=== PATIENT | female | born 1955 | race Caucasian/White ===

== ENCOUNTER → 2020-03-27 12:36 | Outpatient (BNVA) | payer MEDICARE, OTHER, BC, SELFPAY | PROVIDERS: Family Provider Internal Medicine; Referring Provider Dermatology; Visit Provider Dermatology | DX: L57.0 Actinic keratosis (principal); Z12.83 Encounter for screening for malignant neoplasm of skin; D22.70 Melanocytic nevi of unspecified lower limb, including hip; D22.5 Melanocytic nevi of trunk; L21.9 Seborrheic dermatitis, unspecified | CPT/HCPCS: 17000; 17003; 99203; 99204 ==

== ENCOUNTER 2020-09-30 09:24 | Outpatient (CLI) | payer MEDICARE, OTHER, SELFPAY ==
--- NOTE | 2020-09-30 09:30 | MM_ITS ---
WS: [id number] BILATERAL SCREENING DIGITAL MAMMOGRAM WITH CAD HISTORY: SCREENING COMPARISON: 01/31/2019 and 12/28/2017 Bilateral CC and MLO views submitted. Computer aided detection analyzed. Breast composition: The breasts are almost entirely fatty. No suspicious masses, microcalcifications or architectural distortion. Bilateral scattered calcifications. MM/[place] [id number] IMPRESSION: BI-RADS: 2-Benign FOLLOW UP: 1 Year Follow-up
== END 2020-09-30 09:25 | disposition home or self-care (01) ==
LOC: RADSHAW 09:28
PROVIDERS: PCP Internal Medicine; Visit Provider Internal Medicine
DX: Z12.31 Encounter for screening mammogram for malignant neoplasm of breast (principal)
CPT/HCPCS: 77067; 88175

== ENCOUNTER → 2020-10-10 08:41 | Outpatient (BNVA) | payer MEDICARE, OTHER, SELFPAY | PROVIDERS: PCP Internal Medicine; Visit Provider Obstetrics & Gynecology | DX: D25.9 Leiomyoma of uterus, unspecified (principal); N83.202 Unspecified ovarian cyst, left side | CPT/HCPCS: 76830; 81500 ==

== ENCOUNTER 2020-12-24 10:34 | Outpatient (CLI) | payer MEDICARE, OTHER, SELFPAY ==
--- NOTE | 2020-12-24 10:47 | CT_ITS ---
WS: [id number] CT CHEST ANGIOGRAPHY WITH REFORMATS HISTORY: HYPOXIA TECHNIQUE: Contiguous axial images are obtained through the chest during arterial injection of intrav enous contrast. Images are reconstructed to evaluate the pulmonary arteries. MIP imaging also reviewe d. All CT scans at [facility] use at least one of these dose optimization techniques: aut omated exposure control; mA and/or kV adjustment per patient size (includes targeted exams where dose is matched to clinical indication); or iterative reconstruction. CONTRAST: Omnipaque 350; 95 mL IV. DLP: 712.92 mGycm COMPARISON: None available. Very good opacification of the pulmonary arteries. Mildly branching of a subsegmental RIGHT lower lob e nonocclusive pulmonary embolism. No additional emboli are identified. Normal size pulmonary artery. No filling defect in the LEFT atrial appendage. No RIGHT heart strain. There is a moderate size layering pleural effusion. There is mild central bronchial wall thickening. No discrete mass is identified. There is partial atelectasis of the RIGHT middle and RIGHT lower lobe s. Indeterminate and mildly prominent RIGHT paratracheal and hilar lymph nodes with the largest measurin g up to 12 mm. RIGHT apical spiculated mass with pleural tagging measures 18 x 14 x 10 mm. Visualized liver is negative. No adrenal mass. There is very slight nodularity of the LEFT adrenal gl and. Prior cholecystectomy. Moderate increase in thoracic kyphosis. No osteoblastic or osteolytic bone lesions. CT/CT angio chest PE protcl [id number] IMPRESSION: 1. Subsegmental RIGHT lower lobe nonocclusive pulmonary emboli. 2. Moderate size layering RIGHT pleural effusion. 3. Spiculated mass at the RIGHT apex measures 18 x 14 x 10 mm. Neoplasm until proven otherwise. 4. Indeterminate RIGHT paratracheal and hilar lymph nodes with the largest dante suring 12 mm. 5. Partial atelectasis RIGHT middle and RIGHT lower lobes. Notified Terry Naranjo DO at 12/24/2020 11:48 AM.
== END 2020-12-24 10:35 | disposition home or self-care (01) ==
PROVIDERS: PCP Internal Medicine; Visit Provider Internal Medicine
DX: R09.02 Hypoxemia (principal); I26.99 Other pulmonary embolism without acute cor pulmonale; J90 Pleural effusion, not elsewhere classified; J98.11 Atelectasis
CPT/HCPCS: 71275; Q9967

== ENCOUNTER 2020-12-24 10:55 | Outpatient (CLI) | payer MEDICARE, OTHER, SELFPAY ==
--- NOTE | 2020-12-24 | XR_ITS ---
WS: [id number] CHEST 2 VIEWS HISTORY: CHEST PAIN COMPARISON: 05/27/2018 Lungs: Lung volumes are decreased due to marked kyphosis. Mild elevation of the RIGHT hemidiaphragm w ith a small RIGHT pleural effusion. New effusion since 05/27/2018. No pulmonary mass or nodule. Cardiac size: Normal. Mediastinum/Aorta: Mild atherosclerosis aorta. Bones: Marked increased in thoracic kyphosis. No osteoblastic or osteolytic bone disease. Prior cholecystectomy. XR/XR chest 2V* [id number] IMPRESSION: 1. Small RIGHT pleural effusion of uncertain etiology. Recommend additional ev aluation with a chest CT and IV contrast. 2. Low lung volumes due to marked kyphosis.
== END 2020-12-24 10:56 | disposition home or self-care (01) ==
LOC: RADOUTREAD 11:03
PROVIDERS: PCP Internal Medicine; Visit Provider Internal Medicine
DX: Z53.9 Procedure and treatment not carried out, unspecified reason (principal)

== ENCOUNTER 2020-12-24 13:39 | Emergency (ER) | payer MEDICARE, OTHER, SELFPAY ==
[2020-12-24 14:13] VITALS: BP 153/91; PULSE 88; RESP 18; TEMP 37.3; O2SAT 93; BMI 31.1
--- NOTE | 2020-12-24 15:14 | ECG_ITS ---
[facility] Test Date: 2020-12-24 Pat Name: Cassandra Brown Department: Room: Gender: Female Site Safety Representative: : 1955 Requested By: Reyes Lara Order Number: [id number] Magan MD: Eloy Vazquez M.D. Measurements Intervals [place] Rate: 86 P: 44 DE: 149 QRS: 32 QRSD: 80 T: 26 QT: 350 QTc: 419 Interpretive Statements SINUS RHYTHM Compared to ECG 05/27/2018 09:03:06 No significant changes Electronically Signed On 12-25-2020 18:45:15 CDT by Eloy Vazquez M.D. [id number]
--- NOTE | 2020-12-24 15:34 | US_ITS ---
WS: [id number] ULTRASOUND-GUIDED THORACENTESIS CLINICAL INFORMATION: right pulm effusion and lung ca. diagnostic for CA cells. COMPARISON: CTA chest December 24, 2020 PROCEDURE: Informed consent: The risks, benefits, and alternatives of the procedure were discussed with the miguelito ent. Verbal and written consent was obtained. Timeout: A timeout was performed to confirm the correct patient, procedure, and site. Site: Right Preparation: A suitable skin site was identified. The patient was prepped and draped in usual sterile fashion. Lidocaine 1% was used for local anesthesia. Catheter: 4 [place] One-Step catheter. Fluid Volume: 300 ml Color: Dark yellow Fluid sent to the laboratory for requested diagnostic tests. Remainder discarded safely. Complications: No pneumothorax on the post thoracentesis portable chest / thoracentesis [id number] IMPRESSION: 1. Uncomplicated ultrasound-guided right thoracentesis. Removal of 300 cc flui d. 2. Fluid sent for requested diagnostic tests. 3. No immediate complications.
[2020-12-24] MEDS: LORazepam 2 mg/mL INJ 1 mL 0.5 MG IVP (15:39)
[2020-12-24 15:47] LABS: Basophils % 0.3 %; Eosinophils # 0.2 10^3/uL (0.0-0.8); Hematocrit 40.1 % (37.0-47.0); Hemoglobin 12.7 g/dL (11.5-15.3); Lymphocytes # 2.3 10^3/uL (0.8-4.8); Lymphocytes % 20.8 %; Mean Corpuscular HGB Conc 31.7 g/dL (30.0-36.0); Mean Corpuscular Hemoglobin 29.3 pg (28.0-34.0); Mean Corpuscular Volume 92.6 fL (81-99); Mean Platelet Volume 9.4 fL (7.4-10.4); Monocytes # 0.6 10^3/uL (0.2-0.9); Monocytes % 5.8 %; Neutrophils # 7.66 10^3/uL (1.8-7.7); Neutrophils % 70.6 %; Nucleated Red Blood Cells % 0 %; Platelet Count 437 10^3/cmm (130-400); Red Blood Count 4.33 10^6/uL (4.1-5.3); Red Cell Distribution Width 12.2 % (12.1-15.1); White Blood Count 10.9 10^3/uL (4.0-10.0)
[2020-12-24 16:07] LABS: Add Urine Microscopic? YES; Bilirubin Urine Neg (Negative); Blood Urine Neg (Negative); Glucose Urine UA Norm (Normal); Ketones Urine Negative (Negative); Leukocyte Esterase Urine Negative (Negative); Nitrate Urine Negative (Negative); Protein Urine Trace (Negative); Urine Appearance Clear (CLEAR); Urine Color Yellow (Yellow); Urobilinogen Urine 1 mg/dL (Negative); pH Urine 5 (5-7)
[2020-12-24 16:21] LABS: Alanine Aminotransferase 20 U/L (0-33); Alkaline Phosphatase 208 IU/L (35-105); Anion Gap 18.9 (5-19); Aspartate Amino Transferase 19 U/L (0-32); Blood Urea Nitrogen 16 mg/dL (8-23); Carbon Dioxide 24 mmol/L (22-29); Chloride 96 mmol/L (98-107); Creatinine Clr Calc Pharmacy 80.8673; Globulin 3.6 g/dL (1.3-4.6); Glomerular Filtration Rate 100.3 mL/min (90-130); Glucose 95 mg/dL (65-115); NT Pro B Type Natriuretic Pept 204 pg/mL (0-125); Osmolality Calculated 281 mOsm/kg (285-295); Potassium 3.9 mmol/L (3.5-5.1); Sodium 135 mmol/L (136-145); Total Bilirubin 0.3 mg/dL (0.15-1.2); Total Protein 7.6 g/dL (6.6-8.7)
[2020-12-24 16:22] LABS: Lactate (Lactic Acid level) 1.5 mmol/L (0.5-2.2); Troponin(5th) Baseline 8 ng/L (0-10)
[2020-12-24 16:25] LABS: Add Urine Culture? No; Bacteria Urine TRACE /hpf; RBC Urine 0-4 /hpf (0-2); WBC Urine 0-4 /hpf (0-5)
[2020-12-24 16:29] LABS: INR 1.05 (0.8-1.2); Partial Thromboplastin Time 28.6 SECONDS (23.9-36.7)
--- NOTE | 2020-12-24 17:14 | ECG_ITS ---
[facility] Test Date: 2020-12-24 Pat Name: Cassandra Brown Department: Room: Gender: Female Assembler Dc Field Yoke: : 1955 Requested By: Reyes Lara Order Number: [id number] Magan MD: Eloy Vazquez M.D. Measurements Intervals [place] Rate: 96 P: 37 MN: 151 QRS: 40 QRSD: 82 T: 34 QT: 336 QTc: 427 Interpretive Statements SINUS RHYTHM Compared to ECG 12/24/2020 15:51:18 No significant changes Electronically Signed On 12-25-2020 19:00:45 CDT by Eloy Vazquez M.D. [id number]
[2020-12-24] MEDS: HYDROcodone-acetaminophen 5-325 mg Tablet 1 TAB PO ×2 (17:16→18:35)
[2020-12-24 17:22] VITALS: BP 178/101; PULSE 94; RESP 18; O2SAT 96
--- NOTE | 2020-12-24 17:34 | XRR_ITS ---
PROCEDURE INFORMATION: Exam: XR Chest Exam date and time: 12/24/2020 5:44 PM Age: 65 years old Clinical indication: Device placement; Other: Post thoracentesis; Additional info: Post thora TECHNIQUE: Imaging protocol: XR of the chest. Views: 1 view. COMPARISON: CR XR chest 2V* [id number] 12/24/2020 9:41 AM FINDINGS: Lungs: Ill-defined opacity in the right lower lung. Minimal opacity at the left lung base. Pleural spaces: Small right pleural effusion. No pneumothorax. Heart/Mediastinum: Cardiomediastinal contours are unremarkable. Bones/joints: Bones are unremarkable. XR/XR chest 1V portable [id number] IMPRESSION: 1. Decreased right pleural effusion. 2. No pneumothorax.
[2020-12-24 17:44] LABS: Body Fluid Polynuclear #Cells 1.502; Body Fluid WBC 3383 /uL; Monocytes # Body Fluid 1.881
[2020-12-24 17:58] LABS: Apprearance, Body Fluid CLEAR; Color, Body Fluid YELLOW; PATH Referral YES
[2020-12-24] MEDS: enoxaparin 100 mg/mL Syringe 90 MG SUBCUT (18:18)
[2020-12-24 18:21] LABS: Troponin 5 2HR 6.71 ng/L (0-10); Troponin 5 2HR Delta -1.29 ABS# (0-10)
[2020-12-24 18:32] LABS: Albumin Body Fluid 2.4 g/dL; Amylase Body Fluid 66 U/L; Cholesterol Body Fluid 87 mg/dL (0-200); Fluid Alkaline Phos. 66 IU/L; LDH Body Fluid 340 U/L; Total Protein Pleural Fluid 4.2 g/dL; Triglycerides Body Fluid 33 mg/dL (0-150); Uric Acid Body Fluid 6 mg/dL
[2020-12-24] MEDS: LORazepam 0.5 mg Tablet PO (18:35)
--- NOTE | 2020-12-24 18:35 | ED_ITS ---
HPI - General Adult General: Chief complaint: Shortness of Breath/Dyspnea Stated complaint: NEEDS FLUID REMOVED OFF OF LUNG Time Seen by Provider: 12/24/20 14:29 History of Present Illness: HPI narrative: The patient is a 65-year-old female sent to the ER by Dr. Naranjo after he did an outpatient CT angiogram which shows multiple subsegmental PEs, pleural effusion on the right side, and a small mass in the right upper lobe possibly cancerous. I discussed these findings with her and she was quite shocked. I also called Dr. Naranjo on the phone in the room to discuss the plan. She had part of her pleural effusion drained in the ED, was started on Lovenox, given anxiety and pain medication as needed. The radiologist let me know the fluid was slightly opaque and to start an antibiotic on discharge. The patient offers no complaints other than mild occasional shortness of breath but feels normal in the ER. Associated symptoms: Deny chest pain, confusion, dyspnea, headache(s), rash or palpitations Review of Systems General: Reports: 10 or more systems reviewed and unremarkable except in HPI and below Const: Denies: fatigue Eyes: Denies: change in vision, blurry vision or eye redness ENMT: Denies: throat pain, swelling of lips/tongue, ear or mastoid pain or nasal congestion Card: Denies: chest pain, palpitations, irregular heart rhythm, edema, dyspnea on exertion or orthopnea Resp: Denies: dyspnea, productive cough or non-productive cough GI: Denies: abdominal pain, diarrhea or GI cramping : Denies: flank pain, difficulty voiding, urinary frequency or urinary urgency Musc: Denies: neck pain, back pain, extremity pain, joint pain, joint redness, limited range of motion or muscle weakness Skin/Breast: Denies: rash, pruritus, erythema, skin pain or skin tenderness Neuro: Denies: headache(s), numbness in extremities, weakness in extremities, sensory changes, difficulty walking, dizziness, confusion or Slurred speech present Psych: Denies: anxiety or depression Endo: Denies: polyuria All/Imm: Denies: urticaria, throat swelling or tongue swelling PFSH ED PFSH: Family History Father Bleeding disorder Cancer brain tumor Diabetes Mother CAD (coronary artery disease) Cancer lymphoma Family history of thyroid problem hypothyroidism Brother CAD (coronary artery disease) Diabetes Hyperlipidemia Hypertension Heart attack of heart attack Family/Other Ovarian cancer paternal aunt Denies family history of Ovarian cyst Clotting disorder Chronic kidney disease (CKD) Anesthesia complication Stroke Social History (Updated 10/13/20 @ 13:47 by Allyn Sanon LPN) Smoking and tobacco status: never smoked Alcohol intake: current Alcohol intake frequency: holidays/special occasions only History of recent travel: No Physical Exam Const: COMMON NORMALS: no acute distress, average body habitus, patient orie nted x3, no limitations, healthy appearing, alert and well nourished GENERAL APPEARANCE: cooperative, comfortable, well kempt and well developed ORIENTATION/CONSCIOUSNESS: Yes awake, Yes oriented to person, Yes oriented to place and Yes oriented to time HENMT: COMMON NORMALS: normocephalic, external ears normal and Normal external nose present HEAD & SCALP: normal to inspection and normocephalic NOSE: Normal external nose present EXTERNAL EAR: Yes external ears normal MOUTH: Normal oral and palatal mucosa present THROAT: posterior oropharynx normal Eye: COMMON NORMALS: Equal, round and reactive pupils present and EOMs intact bilaterally GENERAL EYE: appearance normal, both eyes and all related structures PUPIL: Yes Equal, round and reactive pupils present Neck/C-Spine: COMMON NORMALS: full ROM, no lymphadenopathy, no meningeal signs and no JVD GENERAL: Yes normal visual inspection Lymph: LYMPHATIC: no lymphadenopathy noted Chest: COMMONS NORMALS: normal inspection of the chest and normal palpation of entire chest wall Resp: COMMON NORMALS: normal respiratory effort, No retractions, No use of accessory muscles, clear to auscultation bilaterally and percussion normal EFFORT & INSPECTION: Yes able to speak in complete sentences AUSCULTATION: clear to auscultation bilaterally PERCUSSION: percussion normal Cardio: COMMON NORMALS: no JVD, regular rate, regular rhythm, S1 normal heart sound present, S2 normal heart sound present and Peripheral pulses 2+ throughout RATE: regular rate RHYTHM: regular rhythm HEART SOUNDS: S1 normal heart sound present and S2 normal heart sound present PERIPHERAL PULSES: Peripheral pulses 2+ throughout GI: COMMON NORMALS: Normal to inspection, nondistended, normoactive bowel sounds present, Soft to palpation, non-tender and no masses INSPECTION: Yes normal to inspection PALPATION: Yes Soft to palpation : COMMON NORMALS: Yes no CVA tenderness BLADDER/KIDNEY EXAM: Yes no CVA tenderness Back/Pelvis: COMMON NORMALS: no CVA tenderness, thoracic and lumbar spine normal to inspection, no thoracic nor lumbar tenderness and thoraco-lumbar ROM normal Extremity: COMMON NORMALS: normal to inspection, full ROM, capillary refill normal, no joint enlargement and no pedal edema GENERAL: Yes normal exam except as noted Neuro: COMMON NORMALS: patient oriented x3, CN's II-XII intact bilaterally, moves all extremities, no focal motor deficits, no sensory deficits noted and gait normal SENSORIUM/ORIENTATION: Yes alert, Yes oriented to person, Yes oriented to place and Yes oriented to time MENINGEAL SIGNS: Yes no meningeal signs Psych: COMMON NORMALS: mental status grossly normal, Normal thought process present, cooperative, normal affect and speech normal APPEARANCE: Yes well kempt ATTITUDE: Yes calm SPEECH: Yes normal speech THOUGHT PROCESS: Normal thought process present Skin: COMMON NORMALS: no rashes or lesions noted GENERAL SKIN EXAM: no rashes or lesions noted Course Vital Signs: Vital signs: Vital Signs Temperature 99.1 F 12/24/20 14:13 Pulse Rate 94 12/24/20 17:22 Respiratory Rate 18 12/24/20 17:22 Blood Pressure 178/101 12/24/20 17:22 Pulse Oximetry 96 12/24/20 17:22 MDM - General Adult MDM Narrative: Medical decision making narrative: The patient comes in with an outside CT which showed right upper lobe spiculated mass which is small but possibly cancerous, surrounding pleural effusion, and multiple PEs in that area as well. I discussed with Dr. Naranjo over the phone in the patient's room and his plan is to get a paracentesis and send it off for analysis to check for cancer cells. I notified the patient and her the strong possibility that this could be cancerous and to follow the results and follow-up closely. They understand early diagnosis and treatment improve the prognosis. Dr. Pedro Pablo mejía who performed the thoracocentesis and the labs are sent for analysis. He noted he thinks the fluid is slightly infected and recommended an antibiotic to be started. She will be started on Bactrim. She was also given Lovenox 1 radha per cake to start her anticoagulation and discussed the risks and benefits of anticoagulation such as bleeding into her brain or hemorrhaging internally and possibly causing . Discussed risks benefits and alternatives to this and she prefers going ahead with the anticoagulation to reduce the clot in her lung. This is the only thing she needs from us today in the ED. She is also given Eliquis on discharge, Bactrim, hydrocodone, Ativan to help with her anxiety. She is stable and requesting discharge. She will follow-up with Dr. Jose A MARIE. ER with worsening symptoms at any time Lab Data: Labs: Lab Results 12/24/20 12/24/20 12/24/20 Range/Units 15:40 15:40 15:40 WBC 10.9 H (4.0-10.0) 10^3/ uL RBC 4.33 (4.1-5.3) 10^6/u L Hgb 12.7 (11.5-15.3) g/dL Hct 40.1 (37.0-47.0) % MCV 92.6 (81-99) fL MCH 29.3 (28.0-34.0) pg MCHC 31.7 (30.0-36.0) g/dL RDW 12.2 (12.1-15.1) % Plt Count 437 H (130-400) 10^3/c mm MPV 9.4 (7.4-10.4) fL Neut % (Auto) 70.6 % Lymph % (Auto) 20.8 % [place] % (Auto) 5.8 % Eos % (Auto) 2.0 % Baso % (Auto) 0.3 % Neut # (Auto) 7.66 (1.8-7.7) 10^3/u L Lymph # (Auto) 2.3 (0.8-4.8) 10^3/u L [place] # (Auto) 0.6 (0.2-0.9) 10^3/u L Eos # (Auto) 0.2 (0.0-0.8) 10^3/u L Baso # (Auto) 0.0 (0.0-0.1) 10^3/u L Nucleated RBC % (a uto) 0 % Nucleated RBCs # 0.0 /100WBC Differential Comme nt PT (12.1-14.9) SECO NDS INR (0.8-1.2) APTT (23.9-36.7) SECO NDS Sodium 135 L (136-145) mmol/L Potassium 3.9 (3.5-5.1) mmol/L Chloride 96 L (98-107) mmol/L Carbon Dioxide 24 (22-29) mmol/L Anion Gap 18.9 (5-19) BUN 16 (8-23) mg/dL Creatinine 0.6 (0.5-0.9) mg/dL GFR Calculation 100.3 (90-130) mL/min Glucose 95 (65-115) mg/dL Calculated Osmolal ity 281 L (285-295) mOsm/k g Lactate 1.5 (0.5-2.2) mmol/L Calcium 9.0 (8.5-10.5) mg/dL Total Bilirubin 0.3 (0.15-1.2) mg/dL AST 19 (0-32) U/L ALT 20 (0-33) U/L Alkaline Phosphata se 208 H (35-105) IU/L Troponin T Baselin e (0-10) ng/L Troponin T 120 Min ambler (0-10) ng/L Delta Troponin T (0-10) ABS# NT-Pro-B Natriuret Pep 204 H (0-125) pg/mL Total Protein 7.6 (6.6-8.7) g/dL Albumin 4.0 (3.5-5.2) g/dL Globulin 3.6 (1.3-4.6) g/dL Urine Color (Yellow) Urine Appearance (CLEAR) Urine pH (5-7) Ur Specific Gravit y (1.005-1.030) Urine Protein (Negative) Urine Glucose (UA) (Normal) Urine Ketones (Negative) Urine Blood (Negative) Urine Nitrate (Negative) Urine Bilirubin (Negative) Urine Urobilinogen (Negative) mg/dL Ur Leukocyte Liliane ase (Negative) Urine RBC (0-2) /hpf Urine WBC (0-5) /hpf Ur Squamous Epith Cells (0-5) /hpf Amorphous Sediment Urine Bacteria (NONE) /hpf Fluid Color Fluid Appearance Fluid Specific Gra v Fluid pH Fluid WBC /uL Fluid RBC 10^3/uL Fld Polynuclear WB Cs # Fld Polynuclear WB Cs % % Fl Mononucl WBCs # (Auto) Fl Mononuclear % A uto % Fluid Glucose mg/dL Fluid Albumin g/dL Fluid LDH U/L Fluid Amylase U/L Fluid Alk Phosphat ase IU/L Fluid Cholesterol (0-200) mg/dL Fluid Triglyceride s (0-150) mg/dL Fluid Uric Acid mg/dL Pleural Total Prot ein g/dL 12/24/20 12/24/20 12/24/20 Range/Units 15:40 15:42 16:09 WBC (4.0-10.0) 10^3/ uL RBC (4.1-5.3) 10^6/u L Hgb (11.5-15.3) g/dL Hct (37.0-47.0) % MCV (81-99) fL MCH (28.0-34.0) pg MCHC (30.0-36.0) g/dL RDW (12.1-15.1) % Plt Count (130-400) 10^3/c mm MPV (7.4-10.4) fL Neut % (Auto) % Lymph % (Auto) % [place] % (Auto) % Eos % (Auto) % Baso % (Auto) % Neut # (Auto) (1.8-7.7) 10^3/u L Lymph # (Auto) (0.8-4.8) 10^3/u L [place] # (Auto) (0.2-0.9) 10^3/u L Eos # (Auto) (0.0-0.8) 10^3/u L Baso # (Auto) (0.0-0.1) 10^3/u L Nucleated RBC % (a uto) % Nucleated RBCs # /100WBC Differential Comme nt PT 14.00 (12.1-14.9) SECO NDS INR 1.05 (0.8-1.2) APTT 28.6 (23.9-36.7) SECO NDS Sodium (136-145) mmol/L Potassium (3.5-5.1) mmol/L Chloride (98-107) mmol/L Carbon Dioxide (22-29) mmol/L Anion Gap (5-19) BUN (8-23) mg/dL Creatinine (0.5-0.9) mg/dL GFR Calculation (90-130) mL/min Glucose (65-115) mg/dL Calculated Osmolal ity (285-295) mOsm/k g Lactate (0.5-2.2) mmol/L Calcium (8.5-10.5) mg/dL Total Bilirubin (0.15-1.2) mg/dL AST (0-32) U/L ALT (0-33) U/L Alkaline Phosphata se (35-105) IU/L Troponin T Baselin e 8 (0-10) ng/L Troponin T 120 Min ambler (0-10) ng/L Delta Troponin T (0-10) ABS# NT-Pro-B Natriuret Pep (0-125) pg/mL Total Protein (6.6-8.7) g/dL Albumin (3.5-5.2) g/dL Globulin (1.3-4.6) g/dL Urine Color Yellow (Yellow) Urine Appearance Clear (CLEAR) Urine pH 5 (5-7) Ur Specific Gravit y 1.010 (1.005-1.030) Urine Protein Trace (Negative) Urine Glucose (UA) Norm (Normal) Urine Ketones Negative (Negative) Urine Blood Neg (Negative) Urine Nitrate Negative (Negative) Urine Bilirubin Neg (Negative) Urine Urobilinogen 1 H (Negative) mg/dL Ur Leukocyte Liliane ase Negative (Negative) Urine RBC 0-4 H (0-2) /hpf Urine WBC 0-4 H (0-5) /hpf Ur Squamous Epith Cells 5-10 H (0-5) /hpf Amorphous Sediment Not Reportable Urine Bacteria Trace (NONE) /hpf Fluid Color Fluid Appearance Fluid Specific Gra v Fluid pH Fluid WBC /uL Fluid RBC 10^3/uL Fld Polynuclear WB Cs # Fld Polynuclear WB Cs % % Fl Mononucl WBCs # (Auto) Fl Mononuclear % A uto % Fluid Glucose mg/dL Fluid Albumin g/dL Fluid LDH U/L Fluid Amylase U/L Fluid Alk Phosphat ase IU/L Fluid Cholesterol (0-200) mg/dL Fluid Triglyceride s (0-150) mg/dL Fluid Uric Acid mg/dL Pleural Total Prot ein g/dL 12/24/20 12/24/20 Range/Units 17:15 17:57 WBC (4.0-10.0) 10^3/ uL RBC (4.1-5.3) 10^6/u L Hgb (11.5-15.3) g/dL Hct (37.0-47.0) % MCV (81-99) fL MCH (28.0-34.0) pg MCHC (30.0-36.0) g/dL RDW (12.1-15.1) % Plt Count (130-400) 10^3/c mm MPV (7.4-10.4) fL Neut % (Auto) % Lymph % (Auto) % [place] % (Auto) % Eos % (Auto) % Baso % (Auto) % Neut # (Auto) (1.8-7.7) 10^3/u L Lymph # (Auto) (0.8-4.8) 10^3/u L [place] # (Auto) (0.2-0.9) 10^3/u L Eos # (Auto) (0.0-0.8) 10^3/u L Baso # (Auto) (0.0-0.1) 10^3/u L Nucleated RBC % (a uto) % Nucleated RBCs # /100WBC Differential Comme nt Yes PT (12.1-14.9) SECO NDS INR (0.8-1.2) APTT (23.9-36.7) SECO NDS Sodium (136-145) mmol/L Potassium (3.5-5.1) mmol/L Chloride (98-107) mmol/L Carbon Dioxide (22-29) mmol/L Anion Gap (5-19) BUN (8-23) mg/dL Creatinine (0.5-0.9) mg/dL GFR Calculation (90-130) mL/min Glucose (65-115) mg/dL Calculated Osmolal ity (285-295) mOsm/k g Lactate (0.5-2.2) mmol/L Calcium (8.5-10.5) mg/dL Total Bilirubin (0.15-1.2) mg/dL AST (0-32) U/L ALT (0-33) U/L Alkaline Phosphata se (35-105) IU/L Troponin T Baselin e (0-10) ng/L Troponin T 120 Min ambler 6.71 (0-10) ng/L Delta Troponin T -1.29 L (0-10) ABS# NT-Pro-B Natriuret Pep (0-125) pg/mL Total Protein (6.6-8.7) g/dL Albumin (3.5-5.2) g/dL Globulin (1.3-4.6) g/dL Urine Color (Yellow) Urine Appearance (CLEAR) Urine pH (5-7) Ur Specific Gravit y (1.005-1.030) Urine Protein (Negative) Urine Glucose (UA) (Normal) Urine Ketones (Negative) Urine Blood (Negative) Urine Nitrate (Negative) Urine Bilirubin (Negative) Urine Urobilinogen (Negative) mg/dL Ur Leukocyte Liliane ase (Negative) Urine RBC (0-2) /hpf Urine WBC (0-5) /hpf Ur Squamous Epith Cells (0-5) /hpf Amorphous Sediment Urine Bacteria (NONE) /hpf Fluid Color Yellow Fluid Appearance Clear Fluid Specific Gra v 1.010 Fluid pH 7.0 Fluid WBC 3383 /uL Fluid RBC 4.000 10^3/uL Fld Polynuclear WB Cs # 1.502 Fld Polynuclear WB Cs % 44.300 % Fl Mononucl WBCs # (Auto) 1.881 Fl Mononuclear % A uto 55.700 % Fluid Glucose 102.0 mg/dL Fluid Albumin 2.4 g/dL Fluid LDH 340 U/L Fluid Amylase 66 U/L Fluid Alk Phosphat ase 66 IU/L Fluid Cholesterol 87 (0-200) mg/dL Fluid Triglyceride s 33 (0-150) mg/dL Fluid Uric Acid 6 mg/dL Pleural Total Prot ein 4.2 g/dL Discharge Plan Discharge Patient Disposition: Home Clinical Impression: Pulmonary embolism, Lung mass, Pleural effusion Condition: Stable Prescriptions: New Ativan 0.5 mg tablet 0.5 mg PO Q8H PRN (Reason: anxiety) Qty: 14 RF: 0 hydrocodone-acetaminophen 5-325 mg tablet 1 tab PO Q6H PRN (Reason: pain) Qty: 14 RF: 0 Bactrim DS 800-160 mg tablet 1 tab PO BID 7 Days Qty: 14 RF: 0 Eliquis DVT-PE Treat 30D Start 5 mg (74 tabs) tablets,dose pack See Rx Instructions .ROUTE .COMPLEX Qty: 74 RF: 0 No Action omeprazole magnesium [Acid Endoscopy Specialty Technician (omeprazole)] 20 mg capsule,delayed release(DR/EC) 20 mg PO DAILY@2100 RF: 0 citalopram 10 mg tablet 10 mg PO DAILY@2100 RF: 0 Advil 200 mg Tablet 200 - 400 mg PO Q6H PRN (Reason: fever/pain) RF: 0 Discharge Orders: Discharge ED (Routine); Ordered 12/24/20 Ordered By: Reyes Lara Referrals: Terry Naranjo DO [Primary Care Provider] - Discharge Diet: Advance as tolerated Discharge Activity: Resume usual activity Patient Instructions: Pleural Effusion (ED), Pulmonary Nodules (ED), Opioid Safety, Pulmonary Embolism Activity Restrictions/Additional Instructions: You have come in with a constellation of symptoms in your chest. One there is a small mass in your right upper lobe of your lung and it is unclear not whether it is cancer. The lung is also surrounded by fluid called a pleural effusion. In third there is a blood clot in your lung known as a pulmonary embolism. We have talked with Dr. Naranjo who sent you here and have drained some fluid out of your lung to be sent off for analysis. It should be back in 5 days and he says he will call you with the results and schedule an FRANK appointment to figure out what to do next. Return to the ER at anytime with worsening symptoms for reevaluation. For the blood clot we will be starting you on Eliquis which has a starter pack and instructions on the box of how to take it. Please get refills as needed from your primary care physician. Please be cautious that this pill may cause increased bleeding so if you fall you can bleed inside your head or belly quite easily and you must come to the ER if you fall. If you get a small cut it may take a long time to stop bleeding so hold pressure for up to an hour. Return to the ER with any worsening symptoms or worrisome symptoms at any time. Coding Level of Care Code ED Patch Machine Operator for Leslie Edwards
[2020-12-24] MEDS: sulfamethoxazole-trimeth DS 160-800 mg Tablet 1 TAB PO (18:37)
[2020-12-24 19:06] LABS: SARS Covid-2 Antigen Negative (Negative)
== END 2020-12-24 18:52 | disposition home or self-care (01) ==
PROVIDERS: Emergency Provider Family Medicine; PCP Internal Medicine
DX: I26.99 Other pulmonary embolism without acute cor pulmonale (principal); J90 Pleural effusion, not elsewhere classified; R91.8 Other nonspecific abnormal finding of lung field; Z79.899 Other long term (current) drug therapy
CPT/HCPCS: 32555; 36415; 71045; 80053; 80500; 81001; 82042; 82150; 82465; 82945; 83605; 83615; 83880; 83986; 84075; 84157; 84315; 84478; 84484; 84560; 85025; 85610; 85730; 87015; 87070; 87075; 87077; 87102; 87116; 87186; 87205; 87206; 87426; 87801; 88112; 88305; 89050; 93005; 96372; 96374; 96375; 99284; J1650; J2060

== ENCOUNTER → 2021-01-09 06:00 | Day surgery (SDC) | payer MEDICARE, OTHER, SELFPAY ==
[2021-01-09 06:28] VITALS: BP 145/102; PULSE 80; RESP 18; TEMP 36.6; O2SAT 95
[2021-01-09 06:29] VITALS: BMI 29.7
[2021-01-09 08:09] VITALS: BP 148/92; PULSE 87; RESP 16; O2SAT 95
[2021-01-09 09:20] LABS: Body Fluid Polynuclear #Cells 1.753; Body Fluid WBC 2522 /uL; Monocytes # Body Fluid 0.769
[2021-01-09 09:34] LABS: Albumin Body Fluid 2.3 g/dL
[2021-01-09 09:35] LABS: Amylase Body Fluid 59 U/L; Cholesterol Body Fluid 108 mg/dL (0-200); Fluid Alkaline Phos. 50 IU/L; LDH Body Fluid 233 U/L; Triglycerides Body Fluid 33 mg/dL (0-150); Uric Acid Body Fluid 6 mg/dL
--- NOTE | 2021-01-09 09:37 | PM.OP ---
Operative Report Date of procedure: January 09, 2021 Pulmonary & Critical Care Medicine Procedure - Right pleural effusion Thoracentesis Procedure: Right pleural effusion Thoracentesis Indication: Ms. Cassandra Brown is a 65-year-old female with past medical history of celiac disease, ulcerative colitis s/p total colectomy 1992, hypertension, Raynaud's phenomenon, eczema, recent hysterectomy in November 2020 referred by her PCP for right upper lobe lung nodule. On 12/24/2020 patient was seen at her PCP office for shortness of breath and right-sided chest pain and hypoxia. CT angiogram on the same day showed subsegmental right lower lobe nonocclusive pulmonary emboli with moderate sized layering right pleural effusion and spiculated mass at right apex measuring 18 x 14 x 10 mm. There were indeterminate right paratracheal and hilar lymph nodes with largest measuring 12 mm. Partial atelectasis of right middle lobe and right lower lobe. She was sent to ER for thoracentesis and 300 cc of yellow-colored fluid was aspirated and sent for pleural fluid analysis, cytology and cultures. Pleural fluid analysis showed fluid parapneumonic exudative effusion WBC 3300 with 44% polynuclear WBC, pH 7, glucose 102, LDH 340, total protein 4.2. Cultures were positive for pansensitive Staph hominis and cytology was negative for malignancy. Patient was discharged home with Bactrim. Patient was started on Eliquis for subsegmental PE. I have seen her in pulmonary clinic on 12/30/[address] scan right upper lobe spiculated lesion. PET/CT on 01/03/2021 reported FDG positive right upper lobe pulmonary nodule consistent with malignancy. Large right pleural effusion with dependent FDG activity concerning for malignant pleural implants. Malignant mediastinal adenopathy representing local metastatic disease. I have informed patient to come for thoracentesis of large right pleural effusion and resend for cytology and repeat cultures. If cytology is negative for malignancy-she would need bronchoscopic biopsies of RUL lesion and endobronchial ultrasound-guided FNA C of mediastinal lymph nodes for tissue diagnosis. Retail Product Demo Specialist(s): Yovani Acosta MD Consent: Signed by patient and myself, witnessed by RN and placed in chart Anesthesia: 10 cc 1% lidocaine without epinephrine Timeout performed as per protocol prior to procedure and patient was placed in appropriate position. Description: Right pleural effusion was localized using ultrasound guidance and the site was marked accordingly. After chlorhexidine skin prep, area was draped in a sterile manner. 1% lidocaine was used for local anesthesia. Thoracentesis catheter was then inserted into the pleural space with aspiration of 900 cc of pleural fluid. Appearance was blood-tinged straw-colored. 60 mL fluid was sent in a sterile cup for bacterial cultures, fungal cultures, fluid analysis for cell count, LDH, total protein. The rest of the sample was sent to pathology to centrifuge and make a pellet, for cytology. Inform pathologist of the same. Preprocedure: Also can visualize lesions on diaphragm -possible pleural mets After draining 900 cc: Ultrasound guidance used: Yes. Image saved to ultrasound machine yes. EBL: < 5 ml Complications:None Associated Problem List Diagnoses (1) Solitary pulmonary nodule on lung CT: (2) Pleural mass: (3) Pleural effusion, right: (4) Suspected lung cancer:
[2021-01-09 09:49] LABS: Apprearance, Body Fluid CLOUDY; Color, Body Fluid PALE YELLOW; PATH Referral YES; Total Protein Pleural Fluid 4.1 g/dL
--- NOTE | 2021-01-09 16:32 | XRR_ITS ---
PROCEDURE INFORMATION: Exam: XR Chest Exam date and time: 01/09/2021 4:32 PM Age: 65 years old Clinical indication: Right-sided and other: Posterior; Patient HX: Fluid drained today, posterior right sided pain; Additional info: J90 - pleural effusion, not elsewhere classified TECHNIQUE: Imaging protocol: XR of the chest. Views: 2 views. COMPARISON: CR XR chest 1V portable [id number] 12/24/2020 5:33 PM FINDINGS: Lungs: Mild atelectasis at the lung bases. Mild fibrosis at the right lung apex. Pleural spaces: Small right pleural effusion. Effusion has decreased in size when compared to 12/24/2020. Trace left pleural effusion suspected. Heart/Mediastinum: Unremarkable. No cardiomegaly. Bones/joints: Unremarkable. XR/XR chest 2V insp/exp [id number] IMPRESSION: 1. Small right pleural effusion. Effusion has decreased in size when compared to 12/24/2020. No pneumothorax. 2. Mild atelectasis at the lung bases. Mild fibrosis at the right lung apex. No new infiltrates when compared to the previous study.
== END ==
PROVIDERS: PCP Internal Medicine; Visit Provider Internal Medicine Pulmonary Disease
DX: J90 Pleural effusion, not elsewhere classified (principal)
CPT/HCPCS: 71046; 80500; 82042; 82150; 82465; 82945; 83615; 83986; 84075; 84157; 84315; 84478; 84560; 87070; 87075; 87102; 87205; 87206; 88112; 88305; 89050

== ENCOUNTER 2021-01-09 16:52 | Emergency (ER) | payer MEDICARE, OTHER, SELFPAY ==
[2021-01-09 17:17] VITALS: BP 148/90; PULSE 92; RESP 18; TEMP 37.2; O2SAT 98; BMI 29.7
--- NOTE | 2021-01-09 17:41 | ED_ITS ---
HPI - Back Pain/Injury General: Chief Complaint: Back Pain/Injury Stated Complaint: F/U FROM DRAIN REMOVAL - R SIDE BACK PAIN Time Seen by Provider: 01/09/21 17:32 History of Present Illness: HPI Narrative: 65-year-old female presents emergency room with complaints of chest pain. Earlier today she had a thoracentesis removed a fair amount of a right pleural effusion. She began having chest pain initially resolved and then it got worse. She contacted Dr. Garibay who done the thoracentesis and he advised her to come to the emergency room he called ahead of time and had put an order in for chest x-ray. They initially did the chest x-ray as an outpatient and astute screen making technician called asking if she should be in ER patient we reregistered to the ER. Her pain is a little bit better now she is not having any difficulty breathing. She also has a known PE and is on Eliquis. Pertinent past history: other (Suspected lung CA with thoracentesis today to drain pleural effusion) Onset (ago): hour(s) Timing: intermittent Severity: moderate Similar Symptoms Previously: No Quality: sharp Radiation: none Exacerbating factors: none Relieving factors: none Associated symptoms: Deny abdominal pain, arthralgias, chills, change in bowel habits, difficulty walking, dysuria, fatigue, fever(s), hematuria, myalgias, nausea, numbness, syncope, tingling/numbness/burning, urinary frequency, urinary urgency, vomiting or weakness Work related injury: No Review of Systems Const: Denies: fever(s), chills or fatigue ENMT: Denies: throat pain, ear or mastoid pain, nasal discharge or nasal congestion Card: Denies: syncope Resp: Denies: dyspnea, productive cough or non-productive cough GI: Denies: abdominal pain, nausea, vomiting or change in bowel habits : Denies: dysuria, urinary urgency or hematuria Skin/Breast: Denies: rash or pruritus Neuro: Denies: difficulty walking PFSH ED PFSH: Family History Father Bleeding disorder Cancer brain tumor Diabetes Mother CAD (coronary artery disease) Cancer lymphoma Family history of thyroid problem hypothyroidism Brother CAD (coronary artery disease) Diabetes Hyperlipidemia Hypertension Heart attack of heart attack Family/Other Ovarian cancer paternal aunt Denies family history of Ovarian cyst Clotting disorder Chronic kidney disease (CKD) Anesthesia complication Stroke Social History Smoking and tobacco status: never smoked Second hand smoke exposure: No Smoking risk assessment/counseling performed?: Yes Alcohol intake: current Alcohol intake frequency: holidays/special occasions only Lives independently: Yes Household members: spouse Marital status: Current occupational status: retired Pets and animals: No History of recent travel: No Current gender identity: Female Physical Exam Const: COMMON NORMALS: no acute distress GENERAL APPEARANCE: cooperative and comfortable ORIENTATION/CONSCIOUSNESS: Yes awake, Yes oriented to person, Yes oriented to place and Yes oriented to time HENMT: COMMON NORMALS: normocephalic, atraumatic, hearing grossly normal bilaterally and external ears normal HEAD & SCALP: normocephalic and atraumatic EXTERNAL EAR: Yes external ears normal Neck/C-Spine: COMMON NORMALS: no JVD Resp: COMMON NORMALS: normal respiratory effort, No retractions and No use of accessory muscles AUSCULTATION: crackles Laterality: right (base) and posterior Cardio: COMMON NORMALS: no JVD, regular rate, regular rhythm and No murmurs present (Cardio) RATE: regular rate RHYTHM: regular rhythm Extremity: COMMON NORMALS: normal to inspection, capillary refill normal, no clubbing, cyanosis or edema, no calf tenderness and no pedal edema Neuro: SENSORIUM/ORIENTATION: Yes oriented to person, Yes oriented to place and Yes oriented to time Course Vital Signs: Vital signs: Vital Signs Temperature 98.9 F 01/09/21 17:17 Pulse Rate 92 01/09/21 17:17 Respiratory Rate 18 01/09/21 17:17 Blood Pressure 148/90 01/09/21 17:17 Pulse Oximetry 98 01/09/21 17:17 MDM - Back Pain/Injury MDM Narrative: Medical decision making narrative: Chest x-ray does not show any pneumothorax there is a small effusion still present but much less than prior to the thoracentesis. Patient given hydrocodone and Zofran. Also discussed constipation issues although it may not be much of a problem for her as she has previous had a colon resection is some chronic diarrhea. She has follow-up this coming week with Desirae. She should keep that appointment if she has any further problems she can return. Patient reassured there is no pneumothorax think the pain is coming from pleuritic source at this point. Discharge Plan Discharge Patient Disposition: Home Clinical Impression: Chest pain, pleuritic, Pleural mass, Pleural effusion, right Condition: Stable Prescriptions: New hydrocodone-acetaminophen 5-325 mg tablet 1 tab PO Q6H PRN (Reason: pain) Qty: 30 RF: 0 Zofran 4 mg tablet 4 mg PO Q6H PRN (Reason: nausea and vomiting) Qty: 15 RF: 0 No Action lansoprazole 15 mg capsule,delayed release(DR/EC) 15 mg PO DAILY RF: 0 amlodipine 5 mg tablet 5 mg PO DAILY Qty: 10 RF: 0 Ativan 0.5 mg tablet 0.5 mg PO Q8H PRN (Reason: anxiety) Qty: 14 RF: 0 levofloxacin 500 mg tablet 500 mg PO DAILY Qty: 10 RF: 0 citalopram 10 mg tablet 10 mg PO DAILY@2100 RF: 0 ibuprofen [Advil] 200 mg Tablet 200 - 400 mg PO Q6H PRN (Reason: fever/pain) RF: 0 hydrocodone-acetaminophen 5-325 mg tablet 1 tab PO Q6H PRN (Reason: pain) Qty: 14 RF: 0 Eliquis DVT-PE Treat 30D Start 5 mg (74 tabs) tablets,dose pack See Rx Instructions .ROUTE .COMPLEX Qty: 74 RF: 0 Discharge Orders: Discharge ED (Routine); Ordered 01/09/21 Ordered By: Chau Zavala Referrals: Terry Naranjo DO [Primary Care Provider] - Discharge Diet: Usual diet Discharge Activity: Resume usual activity Patient Instructions: Opioid Safety Coding Level of Care Code ED Kiss Machine Operator for Leslie Edwards
== END 2021-01-09 17:58 | disposition home or self-care (01) ==
PROVIDERS: Emergency Provider Family Medicine; PCP Internal Medicine
DX: R07.81 Pleurodynia (principal); J94.9 Pleural condition, unspecified; J90 Pleural effusion, not elsewhere classified; Z79.01 Long term (current) use of anticoagulants
CPT/HCPCS: 71046; 80500; 82042; 82150; 82465; 82945; 83615; 83986; 84075; 84157; 84315; 84478; 84560; 87070; 87075; 87102; 87205; 87206; 88112; 88305; 89050; 99281

== ENCOUNTER 2021-05-08 10:51 | Emergency (ER) | payer MEDICARE, OTHER, SELFPAY ==
[2021-05-08 10:57] VITALS: BP 156/94; PULSE 100; RESP 19; TEMP 36.9; O2SAT 97; BMI 31.3
--- NOTE | 2021-05-08 15:54 | XR_ITS ---
WS: [id number] XR chest 1V portable [id number] REASON FOR EXAM: chest pain FINDINGS: Compared to the previous examination of 01/09/2021 the right pleural effusion may be larger. There con tinues to be atelectasis in the right lower lung. Left hemithorax remains clear. No other significant interval change or new abnormality. XR/XR chest 1V portable [id number] IMPRESSION: Increasing right pleural effusion.
--- NOTE | 2021-05-08 15:58 | W.ED.GENADLT ---
HPI - General Adult General: Chief complaint: General Medical Stated complaint: POSS BLOOD CLOT:P/PCP OFFICE Time Seen by Provider: 05/08/21 15:45 History of Present Illness: HPI narrative: This patient was directed here by primary care office. She has had chest discomfort in her right side of her chest for the last several days. She states it feels similar to that she experienced earlier this year when she had a pulmonary embolus. She apparently had a operative procedure and a subsequent pulmonary embolus that required treatment at [facility] in [place]. She was continued on a NOAC post diagnosis and was just stopped in March of this year. She is never had any kind of blood dyscrasias or or clotting disorders previously. She denies any fevers. She has had a mild dry cough for the last few days as well. She denies any known history of coronary artery disease or other cardiac disease. She denies any fevers or chills. No one else is ill at home. She is received her COVID-19 booster in March as well. She has had a prior cholecystectomy. She denies any change in her gastrointestinal symptoms. She has had a history of celiac disease and avoids gluten and has not had any bad food exposure etc. She has had no diarrhea etc. Location: chest Severity: similar to prior episodes Associated symptoms: Reports chest pain; Deny headache(s), nausea, palpitations or vomiting Review of Systems Const: Denies: fever(s), chills, body aches or change in appetite Eyes: Denies: change in vision or photophobia ENMT: Denies: throat pain, odynophagia, nasal congestion or post nasal drip Card: Reports: chest pain; Denies: palpitations, irregular heart rhythm or edema Resp: Reports: non-productive cough and pain on inspiration; Denies: wheezing or hemoptysis GI: Denies: abdominal pain, nausea, vomiting or dysphagia : Denies: flank pain, difficulty voiding or dysuria Musc: Denies: neck pain, back pain, extremity pain or extremity swelling Neuro: Denies: headache(s), numbness in extremities or weakness in extremities Endo: Denies: polyuria or polydipsia Luis/Lymph: Denies: easy bruising or easy bleeding PFS ED PFSH: Family History Father Bleeding disorder Cancer brain tumor Diabetes Mother CAD (coronary artery disease) Cancer lymphoma Family history of thyroid problem hypothyroidism Brother CAD (coronary artery disease) Diabetes Hyperlipidemia Hypertension Heart attack of heart attack Family/Other Ovarian cancer paternal aunt Denies family history of Ovarian cyst Clotting disorder Chronic kidney disease (CKD) Anesthesia complication Stroke Social History Smoking and tobacco status: never smoked Second hand smoke exposure: No Smoking risk assessment/counseling performed?: Yes Alcohol intake: current Alcohol intake frequency: holidays/special occasions only Lives independently: Yes Household members: spouse Marital status: Current occupational status: retired Pets and animals: No History of recent travel: No Current gender identity: Female Physical Exam Const: COMMON NORMALS: no acute distress, average body habitus and patient oriented x3 HENMT: COMMON NORMALS: normocephalic, external ears normal, Normal external nose present, Normal nasal mucous membranes and turbinates present, moist oral mucous membranes and oropharynx normal HEAD & SCALP: normocephalic NOSE: Normal external nose present and Normal nasal mucous membranes and turbinates present EXTERNAL EAR: Yes external ears normal Eye: COMMON NORMALS: Equal, round and reactive pupils present, conjunctivae normal and no scleral icterus CONJUNCTIVA: Yes conjunctivae normal PUPIL: Yes Equal, round and reactive pupils present Neck/C-Spine: COMMON NORMALS: full ROM, no JVD, Thyroid normal and No carotid bruits THYROID: Thyroid normal Lymph: LYMPHATIC: no lymphadenopathy noted Chest: COMMONS NORMALS: normal inspection of the chest CHEST: No Ecchymosis present OTHER: She has tenderness along the inferior chest wall on the right. No skin rashes no crepitance. Rotation of her trunk also exacerbates her symptoms. Resp: COMMON NORMALS: normal respiratory effort, No retractions and clear to auscultation bilaterally EFFORT & INSPECTION: Yes able to speak in complete sentences AUSCULTATION: clear to auscultation bilaterally Cardio: COMMON NORMALS: no JVD, regular rhythm and No murmurs present (Cardio) RHYTHM: regular rhythm GI: COMMON NORMALS: Normal to inspection, nondistended, normoactive bowel sounds present and no masses OTHER: She has tenderness subcostal he on the right. : COMMON NORMALS: Yes no CVA tenderness BLADDER/KIDNEY EXAM: Yes no CVA tenderness Back/Pelvis: COMMON NORMALS: no CVA tenderness, no thoracic nor lumbar tenderness, thoraco-lumbar ROM normal and straight leg raise negative bilaterally Extremity: COMMON NORMALS: normal to inspection, full ROM, capillary refill normal, no clubbing, cyanosis or edema, no calf tenderness and no pedal edema Neuro: COMMON NORMALS: patient oriented x3, moves all extremities, no focal motor deficits and no sensory deficits noted Psych: COMMON NORMALS: mental status grossly normal and Normal thought process present THOUGHT PROCESS: Normal thought process present Course ED course: D-dimer is noted to be elevated we will proceed with CTA. Reevaluation(s): Reevaluation #1: I discussed current findings with the patient. She has a effusion and she relates that she has had a pleural effusion during her evaluation previously. She states it was evaluated with thoracentesis and not found to have any worrisome findings such as potential abnormal cytology etc. She relates that she was treated with antibiotics and actually improved. She has had cough as noted in the history of present illness but no fevers. Was tender suggest a para pneumonic effusion. Her CTA does not show any active PE or other concerning findings at this time and she has no evidence of ACS, CHF etc. I think is reasonable for us to discharge her on the emergency department on oral antibiotics and have her follow-up with her regular physician in the next 10 to 14 days for reevaluation and then subsequent chest CT for status of her effusion. She is currently clinically stable and she is amenable to discharge. We also discussed return precautions. Vital Signs: Vital signs: Vital Signs Temperature 98.3 F 05/08/21 16:04 Pulse Rate 95 05/08/21 18:30 Respiratory Rate 26 H 05/08/21 18:30 Blood Pressure 146/94 05/08/21 18:30 Pulse Oximetry 94 05/08/21 18:30 [facility] - General Adult Lab Data: Labs: Lab Results 05/08/21 05/08/21 05/08/21 16:25 16:25 16:25 WBC 7.3 10^3/uL 10^3/ uL (4.0-10.0) RBC 5.02 10^6/uL 10^6 /uL (4.1-5.3) Hgb 13.5 g/dL g/dL (11.5-15.3) Hct 41.7 % % (37.0-47.0) MCV 83.1 fl fl (81-99) MCH 26.9 pg L pg (28.0-34.0) MCHC 32.4 g/dL g/dL (30.0-36.0) RDW 15.1 % % (12.1-15.1) Plt Count 290 10^3/cmm 10^3 /cmm (130-400) MPV 10.0 fL fL (7.4-10.4) Neut % (Auto) 72.0 % % Lymph % (Auto) 20.2 % % Dooly % (Auto) 6.7 % % Eos % (Auto) 0.7 % % Baso % (Auto) 0.3 % % Neut # (Auto) 5.24 10^3/uL 10^3 /uL (1.8-7.7) Lymph # (Auto) 1.5 10^3/uL 10^3/ uL (0.8-4.8) Dooly # (Auto) 0.5 10^3/uL 10^3/ uL (0.2-0.9) Eos # (Auto) 0.1 10^3/uL 10^3/ uL (0.0-0.8) Baso # (Auto) 0.0 10^3/uL 10^3/ uL (0.0-0.1) Nucleated RBC % (a uto) 0 % % Nucleated RBCs # 0.0 /100WBC /100W BC D-Dimer 1.22 ug/mIFEU H u g/mIFEU (0-0.59) Sodium 138 mmol/L mmol/L (136-145) Potassium 4.4 mmol/L mmol/L (3.5-5.1) Chloride 102 mmol/L mmol/L (98-107) Carbon Dioxide 25 mmol/L mmol/L (22-29) Anion Gap 15.4 (5-19) BUN 18 mg/dL mg/dL (8-23) Creatinine 0.6 mg/dL mg/dL (0.5-0.9) GFR Calculation 100.0 mL/min mL/m in (90-130) Glucose 96 mg/dL mg/dL (65-115) Calculated Osmolal ity 288 mOsm/kg mOsm/ kg (285-295) Calcium 9.0 mg/dL mg/dL (8.5-10.5) Total Bilirubin 0.4 mg/dL mg/dL (0.15-1.2) AST 25 U/L U/L (0-32) ALT 19 U/L U/L (0-33) Alkaline Phosphata se 102 IU/L IU/L (35-105) Troponin T Gen 5 n g/L Total Protein 7.2 g/dL g/dL (6.6-8.7) Albumin 3.9 g/dL g/dL (3.5-5.2) Globulin 3.3 g/dL g/dL (1.3-4.6) Lipase 28 U/L U/L (13-60) 05/08/21 16:25 WBC RBC Hgb Hct MCV MCH MCHC RDW Plt Count MPV Neut % (Auto) Lymph % (Auto) Dooly % (Auto) Eos % (Auto) Baso % (Auto) Neut # (Auto) Lymph # (Auto) Dooly # (Auto) Eos # (Auto) Baso # (Auto) Nucleated RBC % (a uto) Nucleated RBCs # D-Dimer Sodium Potassium Chloride Carbon Dioxide Anion Gap BUN Creatinine GFR Calculation Glucose Calculated Osmolal ity Calcium Total Bilirubin AST ALT Alkaline Phosphata se Troponin T Gen 5 n g/L 9 ng/L ng/L (0-10) Total Protein Albumin Globulin Lipase EKG Data^: Patient has normal sinus rhythm of a proximal 80 to 85 bpm. She has grossly normal intervals, normal axis. No acute ST-T wave changes at this time.: Computer generated interpretation: Chest X-Ray 05/08/21 15:54 IMPRESSION: Increasing right pleural effusion. Chest CTA 05/08/21 17:04 IMPRESSION: 1. Negative for pulmonary embolism. 2. Moderate volume right pleural effusion. Radiation Dose CTDIVOL = (mGy): DLP = 556.26 (mGy-cm) Discharge Plan Discharge Patient Disposition: Home Clinical Impression: Pleural effusion, right Condition: Stable Prescriptions: New doxycycline hyclate 100 mg capsule 100 mg PO BID 14 Days Qty: 28 RF: 0 No Action lansoprazole 15 mg capsule,delayed release(DR/EC) 15 mg PO DAILY RF: 0 amlodipine 5 mg tablet 5 mg PO DAILY Qty: 10 RF: 0 Ativan 0.5 mg tablet 0.5 mg PO Q8H PRN (Reason: anxiety) Qty: 14 RF: 0 levofloxacin 500 mg tablet 500 mg PO DAILY Qty: 10 RF: 0 hydrocodone-acetaminophen 5-325 mg tablet 1 tab PO Q6H PRN (Reason: pain) Qty: 30 RF: 0 Zofran 4 mg tablet 4 mg PO Q6H PRN (Reason: nausea and vomiting) Qty: 15 RF: 0 citalopram 10 mg tablet 10 mg PO DAILY@2100 RF: 0 ibuprofen [Advil] 200 mg Tablet 200 - 400 mg PO Q6H PRN (Reason: fever/pain) RF: 0 hydrocodone-acetaminophen 5-325 mg tablet 1 tab PO Q6H PRN (Reason: pain) Qty: 14 RF: 0 Eliquis DVT-PE Treat 30D Start 5 mg (74 tabs) tablets,dose pack See Rx Instructions .ROUTE .COMPLEX Qty: 74 RF: 0 Discharge Orders: Discharge ED (Routine); Ordered 05/08/21 Ordered By: Darwin Parsons Referrals: Terry Naranjo DO [Primary Care Provider] - 2 weeks (Follow-up on pleural effusion) Discharge Diet: Usual diet Discharge Activity: Resume usual activity Patient Instructions: Opioid Safety Activity Restrictions/Additional Instructions: Take all your usual medications. Take the antibiotics we have prescribed. Call your doctor for follow-up appointment in 2 weeks. If your symptoms persist, new symptoms develop or concerning symptoms develop as we discussed return to this or the nearest emergency department. Coding Level of Care Code ED Covered Button Maker for Leslie Edwards Exam Comprehensive
[2021-05-08 16:04] VITALS: BP 143/104; PULSE 98; RESP 18; TEMP 36.8; O2SAT 95
[2021-05-08 16:32] LABS: Basophils % 0.3 %; Eosinophils # 0.1 10^3/uL (0.0-0.8); Eosinophils % 0.7 %; Hematocrit 41.7 % (37.0-47.0); Hemoglobin 13.5 g/dL (11.5-15.3); Lymphocytes # 1.5 10^3/uL (0.8-4.8); Lymphocytes % 20.2 %; Mean Corpuscular HGB Conc 32.4 g/dL (30.0-36.0); Mean Corpuscular Hemoglobin 26.9 pg (28.0-34.0); Mean Corpuscular Volume 83.1 fl (81-99); Monocytes # 0.5 10^3/uL (0.2-0.9); Monocytes % 6.7 %; Neutrophils # 5.24 10^3/uL (1.8-7.7); Nucleated Red Blood Cells % 0 %; Platelet Count 290 10^3/cmm (130-400); Red Blood Count 5.02 10^6/uL (4.1-5.3); Red Cell Distribution Width 15.1 % (12.1-15.1); White Blood Count 7.3 10^3/uL (4.0-10.0)
[2021-05-08 16:52] LABS: D Dimer 1.22 ug/mIFEU (0-0.59)
[2021-05-08 17:01] VITALS: BP 162/98; PULSE 91; RESP 18; O2SAT 95
--- NOTE | 2021-05-08 17:04 | CTR_ITS ---
PROCEDURE INFORMATION: Exam: CTA Chest With Contrast Exam date and time: 05/08/2021 5:04 PM Age: 66 years old Clinical indication: Abnormal findings; Abnormal diagnostic tests; Elevated d-dimer; Shortness of breath; Prior surgery; Surgery type: Gb; Additional info: Elevated d-dimer and HX of pe last spring TECHNIQUE: Imaging protocol: Computed tomographic angiography of the chest with contrast. 3D rendering (Not supervised by radiologist): MIP and/or 3D reconstructed images were created by the technologist. Radiation optimization: All CT scans at this facility use at least one of these dose optimization techniques: automated exposure control; mA and/or kV adjustment per patient size (includes targeted exams where dose is matched to clinical indication); or iterative reconstruction. Contrast material: OMNI 350; Contrast volume: 65 ml; Contrast route: INTRAVENOUS (IV); COMPARISON: CT angio chest PE protcl [id number] 12/24/2020 10:59 AM RADIATION DOSE METRICS: Total DLP (mGy-cm): 556.26 FINDINGS: Pulmonary arteries: Previously noted pulmonary embolism has intervally resolved. No evidence of pulmonary emboli on current exam. Aorta: Unremarkable. No aortic aneurysm. No aortic dissection. Lungs: Suspected nodular scarring at the right lung apex is unchanged. Minor curvilinear scarring at the left lung base. No consolidation. Pleural spaces: Moderate volume right pleural effusion with atelectasis of the posterior lung base and inferior right middle lobe. No pneumothorax. Heart: Unremarkable. No cardiomegaly. No pericardial effusion. Lymph nodes: Unremarkable. No enlarged lymph nodes. Bones/joints: No acute fracture. Increased kyphosis of the thoracic spine. Soft tissues: Unremarkable. CT/CT angio chest PE protcl [id number] IMPRESSION: 1. Negative for pulmonary embolism. 2. Moderate volume right pleural effusion. Radiation Dose CTDIVOL = (mGy): DLP = 556.26 (mGy-cm)
[2021-05-08 17:17] LABS: Troponin T (5th) Once 9 ng/L (0-10)
[2021-05-08 17:19] LABS: Alanine Aminotransferase 19 U/L (0-33); Albumin Level 3.9 g/dL (3.5-5.2); Alkaline Phosphatase 102 IU/L (35-105); Anion Gap 15.4 (5-19); Aspartate Amino Transferase 25 U/L (0-32); Blood Urea Nitrogen 18 mg/dL (8-23); Carbon Dioxide 25 mmol/L (22-29); Chloride 102 mmol/L (98-107); Globulin 3.3 g/dL (1.3-4.6); Glucose 96 mg/dL (65-115); Lipase 28 U/L (13-60); Osmolality Calculated 288 mOsm/kg (285-295); Potassium 4.4 mmol/L (3.5-5.1); Sodium 138 mmol/L (136-145); Total Bilirubin 0.4 mg/dL (0.15-1.2); Total Protein 7.2 g/dL (6.6-8.7)
[2021-05-08] MEDS: iohexol 350 mg/mL 100 mL Btl IV (17:41)
[2021-05-08 18:00] VITALS: BP 146/94; PULSE 96; RESP 23; O2SAT 93
[2021-05-08 18:30] VITALS: BP 146/94; PULSE 95; RESP 26; O2SAT 94
[2021-05-08 19:33] VITALS: BP 158/91; PULSE 93; RESP 20; O2SAT 94
== END 2021-05-08 19:34 | disposition home or self-care (01) ==
PROVIDERS: Emergency Provider Emergency Medicine; PCP Internal Medicine
DX: J90 Pleural effusion, not elsewhere classified (principal); Z79.891 Long term (current) use of opiate analgesic
CPT/HCPCS: 71045; 71275; 80053; 83690; 84484; 85025; 85378; 99283; Q9967

== ENCOUNTER → 2022-02-15 14:28 | Outpatient (BNVA) | payer MEDICARE, OTHER, SELFPAY | PROVIDERS: PCP Internal Medicine; Referring Provider Internal Medicine; Visit Provider Specialist | DX: G56.01 Carpal tunnel syndrome, right upper limb (principal) | CPT/HCPCS: 95908; 95909 ==

== ENCOUNTER 2022-03-30 15:22 | Outpatient (CLI) | payer MEDICARE, OTHER, SELFPAY ==
--- NOTE | 2022-03-30 15:39 | MM_ITS ---
WS: [id number] BILATERAL 3D TOMOSYNTHESIS DIGITAL SCREENING MAMMOGRAPHY WITH CAD CLINICAL INFORMATION: SCREENING HISTORY: Screening mammogram. No current complaints. COMPARISON: September 30, 2030 TECHNIQUE: Bilateral CC and MLO views. FINDINGS: Scattered fibroglandular densities bilaterally. A few incidental punctate calcifications. No suspicio us focal mass, asymmetry, calcifications, or architectural distortion. No evidence of malignancy. MM/[place] [id number] IMPRESSION: BI-RADS: 2-Benign FOLLOW UP: 1 Year Follow-up Recommend return to annual screening mammography.
== END 2022-03-30 15:23 | disposition home or self-care (01) ==
LOC: RAD 15:23
PROVIDERS: PCP Internal Medicine; Visit Provider Internal Medicine
DX: Z12.31 Encounter for screening mammogram for malignant neoplasm of breast (principal)
CPT/HCPCS: 77063; 77067

== ENCOUNTER 2022-05-29 21:00 | Emergency (ER) | payer MEDICARE, OTHER, SELFPAY ==
[2022-05-29 21:12] VITALS: BP 147/84; PULSE 91; RESP 18; TEMP 36.7; O2SAT 97; BMI 28.4
--- NOTE | 2022-05-29 21:20 | CTR_ITS ---
PROCEDURE INFORMATION: Exam: CT Abdomen And Pelvis With Contrast Exam date and time: 05/29/2022 10:29 PM Age: 67 years old Clinical indication: Abdominal pain; Acute; Prior surgery; Surgery date: 6+ months; Surgery type: Ileostomy; Additional info: Ruq pain, history of bowel obstruction TECHNIQUE: Imaging protocol: Computed tomography of the abdomen and pelvis with contrast. Radiation optimization: All CT scans at this facility use at least one of these dose optimization techniques: automated exposure control; mA and/or kV adjustment per patient size (includes targeted exams where dose is matched to clinical indication); or iterative reconstruction. Contrast material: OMNI 350; Contrast volume: 100 ml; Contrast route: INTRAVENOUS (IV); COMPARISON: DX XR abdomen 1V* [id number] 11/25/2020 4:27 PM RADIATION DOSE METRICS: Total DLP (mGy-cm): 663.58 FINDINGS: Lungs: Bibasilar atelectasis. Liver: Normal. No mass. Gallbladder and bile ducts: Cholecystectomy. Pancreas: Normal. No ductal dilation. Spleen: Normal. No splenomegaly. Adrenal glands: Normal. No mass. Kidneys and ureters: Right kidney cyst, negative for follow-up advised. Stomach and bowel: Dilated small bowel loops with fluid levels measuring up to 3.7 cm in the right abdomen with a possible transition point in right abdomen consistent with an obstruction, potentially high-grade. Appendix: No evidence of appendicitis. Intraperitoneal space: Unremarkable. No free air. No significant fluid collection. Vasculature: Unremarkable. No abdominal aortic aneurysm. Lymph nodes: Unremarkable. No enlarged lymph nodes. Urinary bladder: Unremarkable as visualized. Reproductive: Unremarkable as visualized. Bones/joints: Unremarkable. No acute fracture. Soft tissues: Unremarkable. CT/CT abdomen pelvis w con* [id number] IMPRESSION: 1. Dilated small bowel loops with fluid levels measuring up to 3.7 cm in the right abdomen with a possible transition point in right abdomen consistent with an obstruction, potentially high-grade. 2. Bibasilar atelectasis. 3. Cholecystectomy. 4. Right kidney cyst, negative for follow-up advised. COMMENTS: Consistent with the [employer]'s Incidental Findings Committee white paper (J Am Fabiola Radiol 2018): Any incidental renal lesion less than 1 cm or classified as too small to characterize, or any incidental cystic renal lesion characterized as simple-appearing, is likely benign. No follow-up imaging is recommended for these lesions per consensus recommendations based on imaging criteria.
--- NOTE | 2022-05-29 21:29 | ED_ITS ---
Documented by User: MARISOL Shah 05/29/22 23:42 HPI - Abdominal Pain General: Chief Complaint: Abdominal Pain Stated Complaint: abdomen pain Time Seen by Provider: 05/29/22 21:16 History of Present Illness: 67-year-old female comes in today for complaints of right side abdominal pain. Patient has a history of bowel resection due to ulcerative colitis. Patient reports she has had small bowel obstruction at times in the past that generally resolves with pain medication and occasionally NG tube. Patient reports no vomiting at this time. Patient has had a small bowel movement today. Patient appears nontoxic. Patient appears in mild to m oderate pain. Associated Symptoms: Reports nausea; Denies fever(s) Review of Systems Const: Denies: fever(s) GI: Reports: abdominal pain and nausea PFSH ED PFSH: Family History Father Bleeding disorder Cancer brain tumor Diabetes Mother CAD (coronary artery disease) Cancer lymphoma Family history of thyroid problem hypothyroidism Brother CAD (coronary artery disease) Diabetes Hyperlipidemia Hypertension Heart attack of heart attack Family/Other Ovarian cancer paternal aunt Denies family history of Ovarian cyst Clotting disorder Chronic kidney disease (CKD) Anesthesia complication Stroke Social History Smoking and tobacco status: never smoked Second hand smoke exposure: No Smoking risk assessment/counseling performed?: Yes Alcohol intake: current Alcohol intake frequency: holidays/special occasions only Lives independently: Yes Household members: spouse Marital status: Current occupational status: retired Pets and animals: No History of recent travel: No Current gender identity: Female Physical Exam Const: COMMON NORMALS: alert HENMT: COMMON NORMALS: normocephalic HEAD & SCALP: normocephalic Neck/C-Spine: COMMON NORMALS: full ROM Resp: COMMON NORMALS: normal respiratory effort Cardio: COMMON NORMALS: regular rate RATE: regular rate GI: COMMON NORMALS: Soft to palpation AUSCULTATION: Yes normoactive bowel sounds PALPATION: Yes Soft to palpation and Yes Tenderness to palpation present (GI) Details: RUQ : COMMON NORMALS: Yes no CVA tenderness BLADDER/KIDNEY EXAM: Yes no CVA tenderness Back/Pelvis: COMMON NORMALS: no CVA tenderness Extremity: COMMON NORMALS: no pedal edema Neuro: SENSORIUM/ORIENTATION: Yes alert Skin: COMMON NORMALS: turgor normal GENERAL SKIN EXAM: turgor normal Course ED course: 2330, patient had resolution of pain and was able to have 2 bowel movements. Repeat KUB noted no signs of obstruction with gas throughout the bowel. Vital Signs: Vital signs: Vital Signs Temperature 98.1 F 05/29/22 21:12 Pulse Rate 74 05/29/22 23:55 Respiratory Rate 16 05/29/22 23:55 Blood Pressure 115/70 05/29/22 23:55 Pulse Oximetry 94 05/29/22 23:55 Oxygen Delivery Me thod 05/29/22 23:00 MDM - Abdominal Pain Medical Decision Making 67-year-old female comes in today for complaints of mid to right upper abdominal pain. Patient reports some nausea since this afternoon after eating lunch. On exam abdomen soft with normal bowel sounds. Skin is warm and dry. Vital signs are normal. Differential diagnosis includes but not limited to bowel obstruction, constipation, gallbladder disease, pancreatitis. Patient comes in today for concerns of a bowel obstruction. CT scan of the abdomen noted probable high-grade bowel obstruction. Patient was given pain medication which resolved her pain. Patient was then able to have 2 large bowel movements and relief of all pain and discomfort. Repeat KUB noted no signs of obstruction. I reviewed this with Dr. Garcia who agreed with plan to allow patient to go home on clear liquid diet with recommendations to return for fever, worsening pain, or persistent nausea and vomiting. Patient reported understanding and agreed to plan. I feel the patient probably had a small bowel obstruction/ileus which resolved in the ER. Lab Data : 05/29/22 21:30 05/29/22 21:47 Labs/Radiology: Radiology Impressions Abdomen/Pelvis CT 05/29/22 21:20 IMPRESSION: 1. Dilated small bowel loops with fluid levels measuring up to 3.7 cm in the right abdomen with a possible transition point in right abdomen consistent with an obstruction, potentially high-grade. 2. Bibasilar atelectasis. 3. Cholecystectomy. 4. Right kidney cyst, negative for follow-up advised. COMMENTS: Consistent with the [employer]'s Incidental Findings Committee white paper (J Am Fabiola Radiol 2018): Any incidental renal lesion less than 1 cm or classified as too small to characterize, or any incidental cystic renal lesion characterized as simple-appearing, is likely benign. No follow-up imaging is recommended for these lesions per consensus recommendations based on imaging criteria. KUB X-Ray 05/29/22 23:04 IMPRESSION: 1. Negative for bowel dilation to indicate obstruction. 2. Contrast renal collecting systems and urinary bladder. Laboratory Results WBC 8.5 10^3/uL (4.0-10.0) 05/29/22 21: RBC 4.85 10^6/uL (4.1-5.3) 05/29/22: Hgb 15.0 g/dL (11.5-15.3) 05/29/22: Hct 45.9 % (37.0-47.0) 05/29/22: MCV 94.6 fl (81-99) 05/29/22: MCH 30.9 pg (28.0-34.0) 05/29/22: MCHC 32.7 g/dL (30.0-36.0) 05/29/22: RDW 12.7 % (12.1-15.1) 05/29/22: Plt Count 206 10^3/cmm (130-400) 05/29/22: MPV 11.0 fL (7.4-10.4) H 05/29/22: Neut % (Auto) 82.9 % 05/29/22: Lymph % (Auto) 11.5 % 05/29/22: [place] % (Auto) 4.7 % 05/29/22: Eos % (Auto) 0.4 % 05/29/22: Baso % (Auto) 0.1 % 05/29/22: Neut # (Auto) 7.04 10^3/uL (1.8-7.7) 05/29/22: Lymph # (Auto) 1.0 10^3/uL (0.8-4.8) 05/29/22: [place] # (Auto) 0.4 10^3/uL (0.2-0.9) 05/29/22 21: Eos # (Auto) 0.0 10^3/uL (0.0-0.8) 05/29/22: Baso # (Auto) 0.0 10^3/uL (0.0-0.1) 05/29/22 21:30 Nucleated RBC % (auto) 0 % 05/29/22 21:30 Nucleated RBCs # 0.0 /100WBC 05/29/22 21:30 Sodium 136 mmol/L (136-145) 05/29/22 21:47 Potassium 4.0 mmol/L (3.5-5.1) 05/29/22 21:47 Chloride 98 mmol/L (98-107) 05/29/22 21:47 Carbon Dioxide 27 mmol/L (22-29) 05/29/22 21:47 Anion Gap 15.0 (5-19) 05/29/22 21:47 BUN 19 mg/dL (8-23) 05/29/22 21:47 Creatinine 0.8 mg/dL (0.5-0.9) 05/29/22 21:47 GFR Calculation 71.5 mL/min (90-130) L 05/29/22 21:47 Glucose 115 mg/dL (65-115) 05/29/22 21:47 Calculated Osmolality 285 mOsm/kg (285-295) 05/29/22 21:47 Calcium 10.0 mg/dL (8.5-10.5) 05/29/22 21:47 Total Bilirubin 0.4 mg/dL (0.15-1.2) 05/29/22 21:47 AST 24 U/L (0-32) 05/29/22 21:47 ALT 23 U/L (0-33) 05/29/22 21:47 Alkaline Phosphatase 104 U/L (35-105) 05/29/22 21:47 Total Protein 8.3 g/dL (6.6-8.7) 05/29/22 21:47 Albumin 4.5 g/dL (3.5-5.2) 05/29/22 21:47 Globulin 3.8 g/dL (1.3-4.6) 05/29/22 21:47 Lipase 22 U/L (13-60) 05/29/22 21:47 Urine Color Yellow (Yellow) 05/29/22 22:58 Urine Appearance Clear (CLEAR) 05/29/22 22:58 Urine pH 7 (5-7) 05/29/22 22:58 Ur Specific [place] 1.005 (1.005-1.030) 05/29/22 22:58 Urine Protein Trace (Negative) 05/29/22 22:58 Urine Glucose (UA) Norm (Normal) 05/29/22 22:58 Urine Ketones Negative (Negative) 05/29/22 22:58 Urine Blood Neg (Negative) 05/29/22 22:58 Urine Nitrate Negative (Negative) 05/29/22 22:58 Urine Bilirubin Neg (Negative) 05/29/22 22:58 Urine Urobilinogen Norm mg/dL (Negative) 05/29/22 22:58 Ur Leukocyte Esterase Negative (Negative) 05/29/22 22:58 Urine RBC None /hpf (0-2) 05/29/22 22:58 Urine WBC None /hpf (0-5) 05/29/22 22:58 Ur Squamous Epith Cells 0-4 /hpf (0-5) H 05/29/22 22:58 Amorphous Sediment Not Reportable 05/29/22 22:58 Urine Bacteria None /hpf (NONE) 05/29/22 22:58 Discharge Plan Discharge Patient Disposition: Home Clinical Impression: Small bowel obstruction Condition: Stable Prescriptions: No Action amlodipine 5 mg tablet 5 mg PO DAILY Qty: 10 0RF famotidine 10 mg tablet 10 mg PO DAILY PRN citalopram 10 mg tablet 10 mg PO DAILY@2100 ibuprofen [Advil] 200 mg Tablet 200 - 400 mg PO Q6H PRN (Reason: fever/pain) Discharge Orders: Discharge ED (Routine); Ordered 05/29/22 Ordered By: Trent Galo Referrals: Terry Naranjo, [Primary Care Provider] - Discharge Diet: Clear Liquid Discharge Activity: Increase activity as tolerated Patient Instructions: Ileus (ED) Activity Restrictions/Additional Instructions: Stay on a clear liquid diet for the next 24 hours. After that increase diet slowly to full liquids and a bland diet. Follow-up with primary care as needed. Return to ED for worsening pain, blood in vomit or stool, or inability to hold fluids down. Coding Level of Care Code ED Insurance Premium Auditor for Chg Fwd Exam Comprehensive Documented by User: Oc Garcia DO 05/30/22 01:08 MANAGER BEHAVIOR HPI - Abdominal Pain General: Chief Complaint: Abdominal Pain Stated Complaint: abdomen pain Time Seen by Provider: 05/29/22 21:16 PFSH ED PFSH: Family History Father Bleeding disorder Cancer brain tumor Diabetes Mother CAD (coronary artery disease) Cancer lymphoma Family history of thyroid problem hypothyroidism Brother CAD (coronary artery disease) Diabetes Hyperlipidemia Hypertension Heart attack of heart attack Family/Other Ovarian cancer paternal aunt Denies family history of Ovarian cyst Clotting disorder Chronic kidney disease (CKD) Anesthesia complication Stroke Social History Smoking and tobacco status: never smoked Second hand smoke exposure: No Smoking risk assessment/counseling performed?: Yes Alcohol intake: current Alcohol intake frequency: holidays/special occasions only Lives independently: Yes Household members: spouse Marital status: Current occupational status: retired Pets and animals: No History of recent travel: No Current gender identity: Female Course Vital Signs: Vital signs: Vital Signs Temperature 98.1 F 05/29/22 21:12 Pulse Rate 74 05/29/22 23:55 Respiratory Rate 16 05/29/22 23:55 Blood Pressure 115/70 05/29/22 23:55 Pulse Oximetry 94 05/29/22 23:55 Oxygen Delivery Me thod 05/29/22 23:00 MDM - Abdominal Pain Medical Decision Making 67-year-old female comes in today for complaints of mid to right upper abdominal pain. Patient reports some nausea since this afternoon after eating lunch. On exam abdomen soft with normal bowel sounds. Skin is warm and dry. Vital signs are normal. Differential diagnosis includes but not limited to bowel obstruction, constipation, gallbladder disease, pancreatitis. Patient comes in today for concerns of a bowel obstruction. CT scan of the abdomen noted proba ble high-grade bowel obstruction. Patient was given pain medication which resolved her pain. Patient was then able to have 2 large bowel movements and relief of all pain and discomfort. Repeat KUB noted no signs of obstruction. I reviewed this with Dr. Garcia who agreed with plan to allow patient to go home on clear liquid diet with recommendations to return for fever, worsening pain, or persistent nausea and vomiting. Patient reported understanding and agreed to plan. I feel the patient probably had a small bowel obstruction/ileus which resolved in the ER. This patient was originally seen by MARISOL Moody.? I agree with his history, evaluation, and treatment. Lab Data : 05/29/22 21:30 05/29/22 21:47 Labs/Radiology: Radiology Impressions Abdomen/Pelvis CT 05/29/22 21:20 IMPRESSION: 1. Dilated small bowel loops with fluid levels measuring up to 3.7 cm in the right abdomen with a possible transition point in right abdomen consistent with an obstruction, potentially high-grade. 2. Bibasilar atelectasis. 3. Cholecystectomy. 4. Right kidney cyst, negative for follow-up advised. COMMENTS: Consistent with the [employer]'s Incidental Findings Committee white paper (J Am Fabiola Radiol 2018): Any incidental renal lesion less than 1 cm or classified as too small to characterize, or any incidental cystic renal lesion characterized as simple-appearing, is likely benign. No follow-up imaging is recommended for these lesions per consensus recommendations based on imaging criteria. KUB X-Ray 05/29/22 23:04 IMPRESSION: 1. Negative for bowel dilation to indicate obstruction. 2. Contrast renal collecting systems and urinary bladder. Laboratory Results WBC 8.5 10^3/uL (4.0-10.0) 05/29/22 21:30 RBC 4.85 10^6/uL (4.1-5.3) 05/29/22 21:30 Hgb 15.0 g/dL (11.5-15.3) 05/29/22 21:30 Hct 45.9 % (37.0-47.0) 05/29/22 21:30 MCV 94.6 fl (81-99) 05/29/22 21: MCH 30.9 pg (28.0-34.0) 05/29/22 21: MCHC 32.7 g/dL (30.0-36.0) 05/29/22 21:30 RDW 12.7 % (12.1-15.1) 05/29/22 21:30 Plt Count 206 10^3/cmm (130-400) 05/29/22 21:30 MPV 11.0 fL (7.4-10.4) H 05/29/22 21:30 Neut % (Auto) 82.9 % 05/29/22 21:30 Lymph % (Auto) 11.5 % 05/29/22 21:30 [place] % (Auto) 4.7 % 05/29/22 21:30 Eos % (Auto) 0.4 % 05/29/22 21:30 Baso % (Auto) 0.1 % 05/29/22 21: Neut # (Auto) 7.04 10^3/uL (1.8-7.7) 05/29/22 21: Lymph # (Auto) 1.0 10^3/uL (0.8-4.8) 05/29/22 21:30 [place] # (Auto) 0.4 10^3/uL (0.2-0.9) 05/29/22 21:30 Eos # (Auto) 0.0 10^3/uL (0.0-0.8) 05/29/22 21: Baso # (Auto) 0.0 10^3/uL (0.0-0.1) 05/29/22 21:30 Nucleated RBC % (auto) 0 % 05/29/22 21: Nucleated RBCs # 0.0 /100WBC 05/29/22 21:30 Sodium 136 mmol/L (136-145) 05/29/22 21:47 Potassium 4.0 mmol/L (3.5-5.1) 05/29/22 21:47 Chloride 98 mmol/L (98-107) 05/29/22 21:47 Carbon Dioxide 27 mmol/L (22-29) 05/29/22 21:47 Anion Gap 15.0 (5-19) 05/29/22 21:47 BUN 19 mg/dL (8-23) 05/29/22 21:47 Creatinine 0.8 mg/dL (0.5-0.9) 05/29/22 21:47 GFR Calculation 71.5 mL/min (90-130) L 05/29/22 21:47 Glucose 115 mg/dL (65-115) 05/29/22 21:47 Calculated Osmolality 285 mOsm/kg (285-295) 05/29/22 21:47 Calcium 10.0 mg/dL (8.5-10.5) 05/29/22 21:47 Total Bilirubin 0.4 mg/dL (0.15-1.2) 05/29/22 21:47 AST 24 U/L (0-32) 05/29/22 21:47 ALT 23 U/L (0-33) 05/29/22 21:47 Alkaline Phosphatase 104 U/L (35-105) 05/29/22 21:47 Total Protein 8.3 g/dL (6.6-8.7) 05/29/22 21:47 Albumin 4.5 g/dL (3.5-5.2) 05/29/22 21:47 Globulin 3.8 g/dL (1.3-4.6) 05/29/22 21:47 Lipase 22 U/L (13-60) 05/29/22 21:47 Urine Color Yellow (Yellow) 05/29/22 22:58 Urine Appearance Clear (CLEAR) 05/29/22 22:58 Urine pH 7 (5-7) 05/29/22 22:58 Ur Specific [place] 1.005 (1.005-1.030) 05/29/22 22:58 Urine Protein Trace (Negative) 05/29/22 22:58 Urine Glucose (UA) Norm (Normal) 05/29/22 22:58 Urine Ketones Negative (Negative) 05/29/22 22:58 Urine Blood Neg (Negative) 05/29/22 22:58 Urine Nitrate Negative (Negative) 05/29/22 22:58 Urine Bilirubin Neg (Negative) 05/29/22 22:58 Urine Urobilinogen Norm mg/dL (Negative) 05/29/22 22:58 Ur Leukocyte Esterase Negative (Negative) 05/29/22 22:58 Urine RBC None /hpf (0-2) 05/29/22 22:58 Urine WBC None /hpf (0-5) 05/29/22 22:58 Ur Squamous Epith Cells 0-4 /hpf (0-5) H 05/29/22 22:58 Amorphous Sediment Not Reportable 05/29/22 22:58 Urine Bacteria None /hpf (NONE) 05/29/22 22:58 Discharge Plan Discharge Patient Disposition: Home Clinical Impression: Small bowel obstruction Condition: Stable Prescriptions: No Action amlodipine 5 mg tablet 5 mg PO DAILY Qty: 10 0RF famotidine 10 mg tablet 10 mg PO DAILY PRN citalopram 10 mg tablet 10 mg PO DAILY@2100 ibuprofen [Advil] 200 mg Tablet 200 - 400 mg PO Q6H PRN (Reason: fever/pain) Discharge Orders: Discharge ED (Routine); Ordered 05/29/22 Ordered By: Trent Galo Referrals: Terry Naranjo DO [Primary Care Provider] - Discharge Diet: Clear Liquid Discharge Activity: Increase activity as tolerated Patient Instructions: Ileus (ED) Activity Restrictions/Additional Instructions: Stay on a clear liquid diet for the next 24 hours. After that increase diet slowly to full liquids and a bland diet. Follow-up with primary care as needed. Return to ED for worsening pain, blood in vomit or stool, or inability to hold fluids down. Coding Level of Care Code ED Insurance Premium Auditor for Leslie Fwd Exam Comprehensive
[2022-05-29 21:39] LABS: Basophils % 0.1 %; Eosinophils % 0.4 %; Hematocrit 45.9 % (37.0-47.0); Lymphocytes % 11.5 %; Mean Corpuscular HGB Conc 32.7 g/dL (30.0-36.0); Mean Corpuscular Hemoglobin 30.9 pg (28.0-34.0); Mean Corpuscular Volume 94.6 fl (81-99); Monocytes # 0.4 10^3/uL (0.2-0.9); Monocytes % 4.7 %; Neutrophils # 7.04 10^3/uL (1.8-7.7); Neutrophils % 82.9 %; Nucleated Red Blood Cells % 0 %; Platelet Count 206 10^3/cmm (130-400); Red Blood Count 4.85 10^6/uL (4.1-5.3); Red Cell Distribution Width 12.7 % (12.1-15.1); White Blood Count 8.5 10^3/uL (4.0-10.0)
[2022-05-29 21:50] VITALS: RESP 16
[2022-05-29] MEDS: sodium chloride 0.9% 500 ML 999 ML IV (21:50)
[2022-05-29] MEDS: ondansetron 2 mg/ML SDV 2 mL 4 MG IVP ×2 (21:50→22:58)
[2022-05-29] MEDS: morphine 4 mg/mL SDV 1 mL IVP (21:50)
[2022-05-29 22:11] LABS: Alanine Aminotransferase 23 U/L (0-33); Albumin Level 4.5 g/dL (3.5-5.2); Alkaline Phosphatase 104 U/L (35-105); Aspartate Amino Transferase 24 U/L (0-32); Blood Urea Nitrogen 19 mg/dL (8-23); Carbon Dioxide 27 mmol/L (22-29); Chloride 98 mmol/L (98-107); Globulin 3.8 g/dL (1.3-4.6); Glomerular Filtration Rate 71.5 mL/min (90-130); Glucose 115 mg/dL (65-115); Lipase 22 U/L (13-60); Osmolality Calculated 285 mOsm/kg (285-295); Sodium 136 mmol/L (136-145); Total Bilirubin 0.4 mg/dL (0.15-1.2); Total Protein 8.3 g/dL (6.6-8.7)
[2022-05-29] MEDS: iohexol 350 mg/mL 500 mL Btl (per mL) IV (22:21)
--- NOTE | 2022-05-29 22:34 | PC.NURSE ---
patient states she had a rather large bowel movement and feels much better now. her pain has subsided.
[2022-05-29 23:00] VITALS: BP 138/82; PULSE 81; RESP 16; O2SAT 98
--- NOTE | 2022-05-29 23:01 | PC.NURSE ---
patient has had another large bowel movement.
--- NOTE | 2022-05-29 23:04 | XRR_ITS ---
PROCEDURE INFORMATION: Exam: XR Abdomen Exam date and time: 05/29/2022 11:18 PM Age: 67 years old Clinical indication: Other: Two large bowel movements since CT with obstruction; Additional info: Pain resolved TECHNIQUE: Imaging protocol: Radiologic exam of the abdomen. Views: Frontal supine view of the abdomen. 1 View. COMPARISON: CT abdomen pelvis w con* [id number] 05/29/2022 10:29 PM FINDINGS: Gastrointestinal tract: Normal. No bowel dilation. Organs: Contrast renal collecting systems and urinary bladder. Bones/joints: Unremarkable. XR/XR KUB [id number] IMPRESSION: 1. Negative for bowel dilation to indicate obstruction. 2. Contrast renal collecting systems and urinary bladder.
[2022-05-29 23:16] LABS: Bilirubin Urine Neg (Negative); Blood Urine Neg (Negative); Glucose Urine UA Norm (Normal); Ketones Urine Negative (Negative); Leukocyte Esterase Urine Negative (Negative); Nitrate Urine Negative (Negative); Protein Urine Trace (Negative); Specific Gravity, Urine 1.005 (1.005-1.030); Urine Appearance Clear (CLEAR); Urine Color Yellow (Yellow); Urobilinogen Urine Norm (Negative); pH Urine 7 (5-7)
[2022-05-29 23:17] LABS: Add Urine Microscopic? YES
[2022-05-29 23:18] LABS: Add Urine Culture? No; Squamous Epithelial Cell Urine 0-4 /hpf (0-5)
[2022-05-29] MEDS: HYDROcodone-acetaminophen 5-325 mg Tablet 2 TAB PO (23:45)
[2022-05-29] MEDS: ondansetron 4 MG Tablet 8 MG PO (23:45)
[2022-05-29 23:55] VITALS: BP 115/70; PULSE 74; RESP 16; O2SAT 94
== END 2022-05-29 23:56 | disposition home or self-care (01) ==
PROVIDERS: Emergency Provider Nurse Practitioner Family; PCP Internal Medicine
DX: K56.609 Unspecified intestinal obstruction, unspecified as to partial versus complete obstruction (principal)
CPT/HCPCS: 74018; 74177; 80053; 81001; 83690; 85025; 96374; 96375; 96376; 99285; J2270; J2405; J7040; Q0162; Q9967

== ENCOUNTER → 2023-03-31 08:34 | Outpatient (BNVA) | payer MEDICARE, OTHER, SELFPAY | PROVIDERS: PCP Internal Medicine; Visit Provider Nurse Practitioner Family | DX: L57.0 Actinic keratosis (principal); L81.4 Other melanin hyperpigmentation; L57.8 Other skin changes due to chronic exposure to nonionizing radiation; D22.5 Melanocytic nevi of trunk; L81.7 Pigmented purpuric dermatosis | CPT/HCPCS: 17000; 17003; 99213 ==

== ENCOUNTER 2023-07-05 08:40 | Outpatient (CLI) | payer MEDICARE, OTHER, SELFPAY ==
--- NOTE | 2023-07-05 08:48 | CT_ITS ---
WS: [id number] CT ABDOMEN PELVIS TECHNIQUE: Noncontrast CT of the abdomen and contrast-enhanced CT of the abdomen and pelvis with turner nal and sagittal reformatted images. CLINICAL INFORMATION: RUQ PAIN/CELIAC DZ/GERD W/O ESOPHAGITIS/COLITIS COMPARISON: 05/29/2022 DLP: 970.[address] scans at [facility] use at least one of these dose optimization techniques: automated e xposure control; mA and/or kV adjustment per patient size (includes targeted exams where dose is matc hed to clinical indication); or iterative reconstruction. FINDINGS: Prior postoperative colectomy. Low rectosigmoid anastomosis. Normal-appearing small bowel. No evidenc e of small or large bowel obstruction. Mild diffuse fatty infiltration of liver with hepatomegaly. Mild intrahepatic biliary ductal dilatati on similar to previous. Prior cholecystectomy. Normal portal vein and splenic vein. Normal spleen. No rmal GE junction. Adrenal glands are normal. Normal renal parenchymal enhancement. Simple RIGHT renal cyst measuring 1.8 cm. Slight bibasilar atelectasis. Normal caliber abdominal aorta. Adrenal glands are normal. No abdominal or pelvic lymphadenopathy. Disc space narrowing worse at L5-S1. IMPRESSION: 1. Prior postoperative changes colectomy with low rectosigmoid anastomosis. 2. No evidence of high-grade bowel obstruction. 3. Diffuse fatty filtration of the liver with hepatomegaly and mild intrahepatic biliary ductal dila tation appears unchanged. 4. Prior cholecystectomy. 5. 1.8 cm simple RIGHT renal cyst. 6. Prior hysterectomy. 7. No other suspicious findings in the abdomen or pelvis.
[2023-07-05] MEDS: iohexol 350 mg/mL 500 mL Btl (per mL) PO (11:22)
[2023-07-05] MEDS: iohexol 350 mg/mL 500 mL Btl (per mL) IV (11:22)
== END 2023-07-05 08:41 | disposition home or self-care (01) ==
LOC: RAD 08:40
PROVIDERS: PCP Internal Medicine
DX: K90.0 Celiac disease (principal); K21.9 Gastro-esophageal reflux disease without esophagitis; K51.90 Ulcerative colitis, unspecified, without complications; R10.11 Right upper quadrant pain; L29.0 Pruritus ani; Z90.49 Acquired absence of other specified parts of digestive tract
CPT/HCPCS: 74178; Q9967

== ENCOUNTER 2023-07-05 12:38 | Outpatient (CLI) | payer MEDICARE, OTHER, SELFPAY ==
--- NOTE | 2023-07-05 12:42 | MM_ITS ---
WS: [id number] BILATERAL 3D TOMOSYNTHESIS DIGITAL SCREENING MAMMOGRAPHY WITH CAD CLINICAL INFORMATION: SCREENING HISTORY: Screening mammogram. No current complaints. COMPARISON: 2021 TECHNIQUE: Bilateral CC and MLO views. FINDINGS: Scattered fibroglandular densities bilaterally. No suspicious focal mass, asymmetry, calcifications, or architectural distortion. No evidence of malignancy. A few incidental punctate calcifications IMPRESSION: MM/[place] [id number] BI-RADS: 2-Benign FOLLOW UP: 1 Year Follow-up Recommend return to annual screening mammography.
== END 2023-07-05 12:39 | disposition home or self-care (01) ==
LOC: RAD 12:38
PROVIDERS: PCP Internal Medicine; Visit Provider Internal Medicine
DX: Z12.31 Encounter for screening mammogram for malignant neoplasm of breast (principal)
CPT/HCPCS: 77063; 77067

== ENCOUNTER → 2024-04-02 08:18 | Outpatient (BNVA) | payer MEDICARE, OTHER, SELFPAY | PROVIDERS: PCP Internal Medicine; Visit Provider Nurse Practitioner Family | DX: L81.4 Other melanin hyperpigmentation (principal); L57.8 Other skin changes due to chronic exposure to nonionizing radiation; D22.5 Melanocytic nevi of trunk; L81.7 Pigmented purpuric dermatosis; L57.0 Actinic keratosis; L82.1 Other seborrheic keratosis; D22.71 Melanocytic nevi of right lower limb, including hip | CPT/HCPCS: 17000; 99213 ==

== ENCOUNTER 2024-07-31 08:50 | Outpatient (CLI) | payer MEDICARE, OTHER, SELFPAY ==
--- NOTE | 2024-07-31 08:57 | MM_ITS ---
WS: [id number] BILATERAL 3D TOMOSYNTHESIS DIGITAL SCREENING MAMMOGRAPHY WITH CAD CLINICAL INFORMATION: SCREENING HISTORY: Screening mammogram. No current complaints. COMPARISON: 2022 TECHNIQUE: Bilateral CC and MLO views. FINDINGS: Scattered fibroglandular densities bilaterally. No suspicious focal mass, asymmetry, calcifications, or architectural distortion. No evidence of malignancy. Incidental skin calcifications. Vascular calc ification. MM/MM scr tomosynthesis [id number] IMPRESSION: DENSITY: There are scattered areas of fibroglandular density. BI-RADS: 2 - Benign. FOLLOW UP: 1 Year Follow-up Recommend return to annual screening mammography.
== END 2024-07-31 08:51 | disposition home or self-care (01) ==
PROVIDERS: PCP Internal Medicine; Visit Provider Family Medicine
DX: Z12.31 Encounter for screening mammogram for malignant neoplasm of breast (principal); R92.323 Mammographic fibroglandular density, bilateral breasts; R92.1 Mammographic calcification found on diagnostic imaging of breast
CPT/HCPCS: 77063; 77067

== ENCOUNTER → 2025-04-26 15:00 | Outpatient (BNVA) | payer MEDICARE, OTHER, SELFPAY | PROVIDERS: PCP Internal Medicine; Visit Provider Nurse Practitioner Family | DX: L21.8 Other seborrheic dermatitis (principal); L81.7 Pigmented purpuric dermatosis; L82.1 Other seborrheic keratosis; D18.01 Hemangioma of skin and subcutaneous tissue; L81.4 Other melanin hyperpigmentation; L57.8 Other skin changes due to chronic exposure to nonionizing radiation | CPT/HCPCS: 99214 ==